=== PATIENT | female | born 1990 | race Caucasian/White ===

== ENCOUNTER 2022-07-28 19:55 | Emergency (ER) | payer MEDICAID ==
[~2022-07-28] VITALS: Ht 177.8 cm; Wt 133.8 kg
[2022-07-28 20:09] VITALS: BP 130/75
--- NOTE | 2022-07-28 20:15 | NUR ---
TO BED 11 FROM TRIAGE
--- NOTE | 2022-07-28 20:20 | NUR ---
Patient resting in bed, A/Ox4, chest rise and fall symmetrical, no s/s of distress, on monitor.
[2022-07-28] MEDS ORDERED: IBUPROFEN 600 MG TAB PO ONE (20:25)
[2022-07-28] MEDS ORDERED: TOMOMETER 1 DEV DEV MC ONE (20:54)
[2022-07-28] MEDS: FLUORESCEIN OPTH STRIP 1 MG OP ONE ×2 (20:57→21:02)
[2022-07-28] MEDS: TETRACAINE HCL/PF 0.5% OPTH 4 ML BTL OP ONE ×2 (20:57→21:02)
--- NOTE | 2022-07-28 21:00 | NUR ---
PAZ Ewing with patient.
[2022-07-28] MEDS ORDERED: ACET-10509 PO (21:21)
[2022-07-28] MEDS ORDERED: IBUP-2213 PO (21:21)
[2022-07-28 21:35] VITALS: BP 128/71
== END 2022-07-28 21:36 | disposition home or self-care (01) ==
LOC: MED 19:55
DX: S05.91XA Unspecified injury of right eye and orbit, initial encounter (principal); J45.909 Unspecified asthma, uncomplicated; F32.9 Major depressive disorder, single episode, unspecified; F41.9 Anxiety disorder, unspecified; Z79.899 Other long term (current) drug therapy; Z79.1 Long term (current) use of non-steroidal anti-inflammatories (NSAID); Z88.1 Allergy status to other antibiotic agents; Z88.5 Allergy status to narcotic agent; Z88.6 Allergy status to analgesic agent; W50.0XXA Accidental hit or strike by another person, initial encounter; Y93.89 Activity, other specified; Y92.89 Other specified places as the place of occurrence of the external cause; Y99.8 Other external cause status
CPT/HCPCS: 99284